=== PATIENT | female | born 1995 | race African-American/Black ===

== ENCOUNTER 2018-06-20 08:22 | Emergency (ER) | payer OTHER ==
[~2018-06-20] VITALS: Ht 167.6 cm; Wt 92.5 kg
--- NOTE | 2018-06-20 10:06 | Emergency Room Report ---
History of Present Illness General Chief Complaint: Lower Extremity Injury Source: Patient Present Illness HPI 23-year-old female presents ED for evaluation. Patient states that she is here to have her right knee evaluated. States she injured her knee at work on 06/12. Was seen by PMD had an x-ray done which was negative. Recommended by PMD to have repeat x-ray done. Pain is throbbing, 6 out of 10, nonradiating. Is able to bear weight. No other aggravating relieving factors. Denies any other associated symptoms Allergies: Coded Allergies: AMOXICILLIN (Verified Allergy, Unknown, 06/20/18) Patient History Past Medical History: none Past Surgical History: none Pertinent Family History: none Social History: Denies: smoking, alcohol use, drug use Now: No Immunizations: UTD Reviewed Nursing Documentation: PMH: Agreed; PSxH: Agreed Nursing Documentation-PMH Past Medical History: No Stated History Review of Systems All Other Systems: negative except mentioned in HPI Physical Exam Vital Signs Date Time Temp Pulse Resp B/P (MAP) Pulse Ox O2 Delivery O2 Flow Rate FiO2 06/20/18 08:26 98.8 71 18 126/70 99 Room Air Sp02 EP Interpretation: reviewed, normal General Appearance: no apparent distress, alert, GCS 15, non-toxic Head: normocephalic Eyes: bilateral eye normal inspection, bilateral eye PERRL ENT: normal ENT inspection Neck: normal inspection Respiratory: normal inspection Cardiovascular #1: normal inspection Gastrointestinal: normal inspection Rectal: deferred Genitourinary: no CVA tenderness Musculoskeletal: normal range of motion, tender - R knee Neurologic: alert, oriented x3, responsive, motor strength/tone normal, sensory intact, speech normal Psychiatric: normal inspection Skin: normal inspection Lymphatic: normal inspection Medical Decision Making Diagnostic Impression: Primary Impression: Knee injury Qualified Codes: S89.91XD - Unspecified injury of right lower leg, subsequent encounter ER Course Hospital Course 23-year-old F presents to ED complaining of R knee pain since 06/12 s/p fall. Differential diagnoses include: Fracture, dislocation, sprain, contusion Clinical course Patient placed on stretcher. After initial history and physical, I ordered xrays R knee Xrays prelim read shows no acute fracture/dislocation. Discussed findings with patient. Patient is currently in knee immobilizer. Patient will continue to use that. I'll provide orthopedic referrals. Diagnosis - knee injury Stable and discharged to home. apply ice, keep elevated. weight bear as tolerated. Followup with ortho. Return to ED if symptoms recur or worsen Other X-Ray Diagnostic Results Other X-Ray Diagnostic Results : X-Ray ordered: R knee # of Views/Limited Vs Complete: 3 View Indication: Pain EP Interpretation: Yes Interpretation: no dislocation, no soft tissue swelling, no fractures Impression: No acute disease Electronically Signed by: Electronically signed by Isaac Richey MD Last Vital Signs Date Time Temp Pulse Resp B/P (MAP) Pulse Ox O2 Delivery O2 Flow Rate FiO2 06/20/18 08:26 98.8 71 18 126/70 99 Room Air Status: improved Disposition: HOME, SELF-CARE Condition: Stable Scripts No Active Prescriptions or Reported Meds Referrals: Chente Sol MD NOT CHOSEN IPA/,REFERRING (PCP) Patient Instructions: Knee Pain, [id number] Isaac Richey MD Jun 20, 2018 10:06
[2018-06-20 10:11] VITALS: BP 124/68
--- NOTE | 2018-06-20 10:39 | Diagnostic Imaging Report ---
Indication: Pain Knee pain/trauma 3 views of the right knee were obtained. Findings: No acute fracture, malalignment, or joint effusion are identified. Joint space is relatively well-maintained. Impression: Negative for acute findings.
== END 2018-06-20 10:19 | disposition home or self-care (01) ==
LOC: EMR 08:50
DX: S89.91XD Unspecified injury of right lower leg, subsequent encounter (principal); W19.XXXD Unspecified fall, subsequent encounter; Z88.0 Allergy status to penicillin
CPT/HCPCS: 99283